=== PATIENT | female | born 1970 | race Caucasian/White ===

== ENCOUNTER 2022-03-18 16:36 | Emergency (ER) | payer OTHER ==
[2022-03-18 16:49] VITALS: BP 128/81; PULSE 78; TEMP 98.2; BMI 42.3
[2022-03-18] MEDS ORDERED: LIDOCAINE 5% TOPICAL PATCH TP ONE (17:27)
[2022-03-18] MEDS ORDERED: diazePAM 5 MG TABLET PO ONE (17:33)
[2022-03-18] MEDS ORDERED: diazePAM 5 MG TABLET ONE (18:14)
[2022-03-18] MEDS ORDERED: LIDOCAINE 5% TOPICAL PATCH ONE (18:14)
[2022-03-19] MEDS ORDERED: LIDOCAINE PATCH REMOVAL MC SCH (06:00)
== END 2022-03-18 19:12 | disposition home or self-care (01) ==
LOC: JERFT 16:36
DX: M54.2 Cervicalgia (principal); M54.6 Pain in thoracic spine; R91.8 Other nonspecific abnormal finding of lung field; V49.50XA Passenger injured in collision with unspecified motor vehicles in traffic accident, initial encounter
CPT/HCPCS: 70450-TC; 72125-TC; 72128-TC; 99284-25